=== PATIENT | male | born 1965 | race Caucasian/White ===

== ENCOUNTER 2019-04-15 21:44 | Inpatient (IN) | payer MEDICAID ==
[2019-04-15 23:08] LABS: ADD MAN DIFF? NO
[2019-04-15 23:13] LABS: BASOPHIL # 0.1 10^3/ul (0.0-0.1); BASOPHILS % 0.8 % (0.0-2.0); EOSINOPHILS # 0.2 10^3/ul (0.0-0.5); EOSINOPHILS % 1.5 % (0.0-7.0); HEMATOCRIT 39.4 % (42.0-52.0); HEMOGLOBIN 13.5 g/dl (14.0-18.0); LYMPHOCYTES # 2.2 10^3/ul (0.8-2.9); LYMPHOCYTES % 21.7 % (15.0-51.0); MEAN CORPUSCULAR HEMOGLOBIN 30.5 pg (29.0-33.0); MEAN CORPUSCULAR HGB CONC 34.3 g/dl (32.0-37.0); MEAN CORPUSCULAR VOLUME 89.1 fl (82.0-101.0); MEAN PLATELET VOLUME 8.7 fl (7.4-10.4); MONOCYTE # 0.7 10^3/ul (0.3-0.9); MONOCYTES % 7.1 % (0.0-11.0); NEUTROPHIL # 6.9 10^3/ul (1.6-7.5); NEUTROPHILS % 67.8 % (39.0-77.0); PLATELET COUNT 587 10^3/UL (140-415); RED BLOOD COUNT 4.42 10^6/ul (4.70-6.10); RED CELL DISTRIBUTION WIDTH 11.3 % (11.5-14.5)
[2019-04-15 23:13] LABS: WHITE BLOOD COUNT 10.1 10^3/ul (4.8-10.8)
[2019-04-15] MEDS: CEFEPIME 2GM/50 ML (PMX) 50 ML IVPB (23:16)
[2019-04-15] MEDS: ONDANSETRON 4 MG INJ IV (23:16)
[2019-04-15] MEDS: SODIUM CHLORIDE 0.9% 1L BAG IV* (23:16)
[2019-04-15] MEDS: HYDROmorphONE 1 MG/ML SYG IV (23:16)
[2019-04-15 23:33] LABS: INR 0.91; PROTIME 12.4 Sec (11.9-14.9)
[2019-04-15 23:34] LABS: PARTIAL THROMBOPLASTIN TIME 36.7 Sec (23.0-35.0)
[2019-04-15 23:40] LABS: ALANINE AMINOTRANSFERASE 21 IU/L (13-69); ALBUMIN 3.7 g/dl (3.3-4.9); ALKALINE PHOSPHATASE 185 IU/L (42-121); ANION GAP 9 (5-13); ASPARTATE AMINO TRANSFERASE 16 IU/L (15-46); BILIRUBIN,INDIRECT 0.4 mg/dl (0-1.1); BILIRUBIN,TOTAL 0.4 mg/dl (0.2-1.3); BLOOD UREA NITROGEN 10 mg/dl (7-20); C-REACTIVE PROTEIN 7.6 mg/dl (0.0-0.9); CALCIUM 9.4 mg/dl (8.4-10.2); CARBON DIOXIDE 28 mmol/L (21-31); CHLORIDE 96 mmol/L (97-110); CREATININE 0.56 mg/dl (0.61-1.24); Estimated GFR > 60 mL/min (>60); POTASSIUM 4.3 mmol/L (3.5-5.1); SODIUM 133 mmol/L (135-144); TOTAL PROTEIN 7.8 g/dl (6.1-8.1)
[2019-04-15 23:43] LABS: GLUCOSE 419 mg/dl (70-220)
[2019-04-15] MEDS: VANCOMYCIN 1 GM (PMX) 250 ML IVPB (23:52)
[2019-04-16 00:17] LABS: ERYTHROCYTE SEDIMENTATION RATE 107 mm/Hr (0-20)
[2019-04-16] MEDS ORDERED: ONDANSETRON 4 MG INJ IV ×2 (00:30)
[2019-04-16] MEDS ORDERED: NACL 0.9% 3 ML SYG IV (00:30)
[2019-04-16] MEDS ORDERED: BISACODYL (EC) 5 MG TAB PO (00:30)
[2019-04-16] MEDS ORDERED: ACETAMINOPHEN 325 MG TAB PO (00:30)
[2019-04-16] MEDS ORDERED: VANCOMYCIN IV PER PHARMACY XX (00:30)
[2019-04-16] MEDS: INSULIN LISPRO 100 UNIT/ML VIAL SC (01:20)
[2019-04-16 01:21] LABS: LACTIC ACID 1.3 mmol/L (0.5-2.0)
[2019-04-16] MEDS ORDERED: GLUCAGON 1 MG INJ IM (01:30)
[2019-04-16] MEDS ORDERED: GLUCOSE GEL 15 GRAM TUBE BUCCAL (01:30)
[2019-04-16] MEDS ORDERED: DEXTROSE 50% 50 ML SYRINGE IV ×2 (01:30)
[2019-04-16] MEDS ORDERED: GLUCOSE GEL 15 GRAM TUBE PO ×2 (01:30)
[2019-04-16] MEDS: morphine 2 MG INJ IV ×6 (01:44→22:54)
[2019-04-16] MEDS: DOCUSATE SODIUM 100 MG CAP PO ×2 (01:44→12:16)
[2019-04-16] MEDS: ACCU-CHEK XX ×2 (02:00→02:16)
[2019-04-16 03:25] LABS: ADD MAN DIFF? NO
[2019-04-16 03:28] LABS: WHITE BLOOD COUNT 9.3 10^3/ul (4.8-10.8)
[2019-04-16 03:28] LABS: BASOPHIL # 0.1 10^3/ul (0.0-0.1); BASOPHILS % 0.5 % (0.0-2.0); EOSINOPHILS # 0.2 10^3/ul (0.0-0.5); EOSINOPHILS % 1.8 % (0.0-7.0); HEMATOCRIT 34.8 % (42.0-52.0); LYMPHOCYTES # 2.6 10^3/ul (0.8-2.9); LYMPHOCYTES % 28.4 % (15.0-51.0); MEAN CORPUSCULAR HEMOGLOBIN 30.9 pg (29.0-33.0); MEAN CORPUSCULAR HGB CONC 34.5 g/dl (32.0-37.0); MEAN CORPUSCULAR VOLUME 89.7 fl (82.0-101.0); MEAN PLATELET VOLUME 8.5 fl (7.4-10.4); MONOCYTE # 0.7 10^3/ul (0.3-0.9); MONOCYTES % 7.9 % (0.0-11.0); NEUTROPHIL # 5.6 10^3/ul (1.6-7.5); NEUTROPHILS % 60.2 % (39.0-77.0); PLATELET COUNT 489 10^3/UL (140-415); RED BLOOD COUNT 3.88 10^6/ul (4.70-6.10); RED CELL DISTRIBUTION WIDTH 11.3 % (11.5-14.5)
[2019-04-16 03:46] LABS: LACTIC ACID 1.7 mmol/L (0.5-2.0)
[2019-04-16 03:47] LABS: ALANINE AMINOTRANSFERASE 22 IU/L (13-69); ALBUMIN 3.2 g/dl (3.3-4.9); ALBUMIN/GLOBULIN RATIO 0.86; ALKALINE PHOSPHATASE 136 IU/L (42-121); ANION GAP 7 (5-13); ASPARTATE AMINO TRANSFERASE 14 IU/L (15-46); BILIRUBIN,INDIRECT 0.4 mg/dl (0-1.1); BILIRUBIN,TOTAL 0.4 mg/dl (0.2-1.3); BLOOD UREA NITROGEN 11 mg/dl (7-20); CARBON DIOXIDE 29 mmol/L (21-31); CHLORIDE 102 mmol/L (97-110); CREATININE 0.51 mg/dl (0.61-1.24); Estimated GFR > 60 mL/min (>60); GLUCOSE 142 mg/dl (70-220); POTASSIUM 3.7 mmol/L (3.5-5.1); SODIUM 138 mmol/L (135-144); TOTAL PROTEIN 6.9 g/dl (6.1-8.1)
[2019-04-16] MEDS ORDERED: PENDING SANTYL ORDER FOR WOUND CARE XX (04:00)
[2019-04-16] MEDS: HYDROCODONE/APAP (5/325) TAB PO ×3 (04:43→17:27)
[2019-04-16] MEDS: INSULIN ASPART [NOVOLOG] 3 ML PEN SC ×4 (08:13→21:48)
[2019-04-16] MEDS: VANCOMYCIN 1 GM 250 ML IVPB ×2 (11:08→22:55)
[2019-04-16] MEDS: HEPARIN 5,000 UNIT/1 ML VIAL SC (21:49)
[2019-04-17] MEDS: HYDROCODONE/APAP (5/325) TAB PO ×3 (00:05→14:02)
[2019-04-17] MEDS: DOCUSATE SODIUM 100 MG CAP PO ×2 (00:36→12:37)
[2019-04-17] MEDS: ACCU-CHEK XX ×2 (02:54→05:49)
[2019-04-17] MEDS: INSULIN ASPART [NOVOLOG] 3 ML PEN SC ×6 (04:11→20:20)
[2019-04-17] MEDS: morphine 2 MG INJ IV ×3 (04:15→20:54)
[2019-04-17 05:47] LABS: ADD MAN DIFF? NO
[2019-04-17 06:07] LABS: BASOPHIL # 0.1 10^3/ul (0.0-0.1); BASOPHILS % 1.1 % (0.0-2.0); EOSINOPHILS # 0.2 10^3/ul (0.0-0.5); EOSINOPHILS % 2.8 % (0.0-7.0); HEMATOCRIT 35.8 % (42.0-52.0); HEMOGLOBIN 12.4 g/dl (14.0-18.0); LYMPHOCYTES # 2.8 10^3/ul (0.8-2.9); MEAN CORPUSCULAR HEMOGLOBIN 30.8 pg (29.0-33.0); MEAN CORPUSCULAR HGB CONC 34.6 g/dl (32.0-37.0); MEAN CORPUSCULAR VOLUME 89.1 fl (82.0-101.0); MEAN PLATELET VOLUME 8.7 fl (7.4-10.4); MONOCYTE # 0.5 10^3/ul (0.3-0.9); MONOCYTES % 6.4 % (0.0-11.0); NEUTROPHIL # 4.4 10^3/ul (1.6-7.5); NEUTROPHILS % 54.8 % (39.0-77.0); PLATELET COUNT 532 10^3/UL (140-415); RED BLOOD COUNT 4.02 10^6/ul (4.70-6.10); RED CELL DISTRIBUTION WIDTH 11.3 % (11.5-14.5)
[2019-04-17 06:07] LABS: WHITE BLOOD COUNT 8.1 10^3/ul (4.8-10.8)
[2019-04-17 06:26] LABS: ALANINE AMINOTRANSFERASE 15 IU/L (13-69); ALBUMIN 3.1 g/dl (3.3-4.9); ALBUMIN/GLOBULIN RATIO 0.83; ALKALINE PHOSPHATASE 133 IU/L (42-121); ANION GAP 8 (5-13); ASPARTATE AMINO TRANSFERASE 16 IU/L (15-46); BILIRUBIN,INDIRECT 0.3 mg/dl (0-1.1); BILIRUBIN,TOTAL 0.3 mg/dl (0.2-1.3); BLOOD UREA NITROGEN 15 mg/dl (7-20); CARBON DIOXIDE 28 mmol/L (21-31); CHLORIDE 101 mmol/L (97-110); CHOL/HDL RATIO 5.2 RATIO; CHOLESTEROL 136 mg/dl (100-200); CREATININE 0.54 mg/dl (0.61-1.24); Estimated GFR > 60 mL/min (>60); GLUCOSE 184 mg/dl (70-220); HDL CHOLESTEROL 26 mg/dl (28-71); LDL CHOLESTEROL,CALCULATED 92 mg/dl; MAGNESIUM 1.9 mg/dl (1.7-2.5); POTASSIUM 3.9 mmol/L (3.5-5.1); SODIUM 137 mmol/L (135-144); TOTAL PROTEIN 6.8 g/dl (6.1-8.1); TRIGLYCERIDES 90 mg/dl (0-149)
[2019-04-17 07:02] LABS: C-REACTIVE PROTEIN 3.8 mg/dl (0.0-0.9)
[2019-04-17] MEDS: HEPARIN 5,000 UNIT/1 ML VIAL SC ×2 (08:22→20:30)
[2019-04-17 08:26] LABS: ERYTHROCYTE SEDIMENTATION RATE 86 mm/Hr (0-20)
[2019-04-17] MEDS: VANCOMYCIN 1 GM 250 ML IVPB (10:53)
[2019-04-17 10:58] LABS: VANCOMYCIN,TROUGH < 5.0 ug/ml (10.0-20.0)
[2019-04-17] MEDS: VANCOMYCIN 750 MG (PMX) 250 ML IVPB (18:40)
[2019-04-17] MEDS: INSULIN GLARGINE [LANTus] (100 UNITS/ML) SYG SC (20:29)
[2019-04-18] MEDS: DOCUSATE SODIUM 100 MG CAP PO ×2 (00:51→12:29)
[2019-04-18] MEDS: morphine 2 MG INJ IV ×4 (01:12→20:45)
[2019-04-18] MEDS: ACCU-CHEK XX (02:00)
[2019-04-18] MEDS: HYDROCODONE/APAP (5/325) TAB PO ×3 (02:26→18:14)
[2019-04-18] MEDS: VANCOMYCIN 750 MG (PMX) 250 ML IVPB ×3 (02:38→19:10)
[2019-04-18 06:16] LABS: ADD MAN DIFF? NO
[2019-04-18 06:24] LABS: WHITE BLOOD COUNT 7.9 10^3/ul (4.8-10.8)
[2019-04-18 06:24] LABS: BASOPHIL # 0.1 10^3/ul (0.0-0.1); BASOPHILS % 0.8 % (0.0-2.0); EOSINOPHILS # 0.2 10^3/ul (0.0-0.5); EOSINOPHILS % 2.4 % (0.0-7.0); HEMATOCRIT 36.5 % (42.0-52.0); HEMOGLOBIN 12.3 g/dl (14.0-18.0); LYMPHOCYTES # 2.7 10^3/ul (0.8-2.9); LYMPHOCYTES % 34.3 % (15.0-51.0); MEAN CORPUSCULAR HEMOGLOBIN 30.5 pg (29.0-33.0); MEAN CORPUSCULAR HGB CONC 33.7 g/dl (32.0-37.0); MEAN CORPUSCULAR VOLUME 90.6 fl (82.0-101.0); MEAN PLATELET VOLUME 8.5 fl (7.4-10.4); MONOCYTE # 0.5 10^3/ul (0.3-0.9); MONOCYTES % 6.3 % (0.0-11.0); NEUTROPHIL # 4.4 10^3/ul (1.6-7.5); NEUTROPHILS % 55.2 % (39.0-77.0); PLATELET COUNT 557 10^3/UL (140-415); RED BLOOD COUNT 4.03 10^6/ul (4.70-6.10); RED CELL DISTRIBUTION WIDTH 11.5 % (11.5-14.5)
[2019-04-18 06:53] LABS: ALANINE AMINOTRANSFERASE 18 IU/L (13-69); ALBUMIN 3.4 g/dl (3.3-4.9); ALKALINE PHOSPHATASE 117 IU/L (42-121); ANION GAP 7 (5-13); ASPARTATE AMINO TRANSFERASE 16 IU/L (15-46); BILIRUBIN,INDIRECT 0.3 mg/dl (0-1.1); BILIRUBIN,TOTAL 0.3 mg/dl (0.2-1.3); BLOOD UREA NITROGEN 14 mg/dl (7-20); CALCIUM 8.9 mg/dl (8.4-10.2); CARBON DIOXIDE 28 mmol/L (21-31); CHLORIDE 103 mmol/L (97-110); CREATININE 0.54 mg/dl (0.61-1.24); Estimated GFR > 60 mL/min (>60); GLUCOSE 194 mg/dl (70-220); POTASSIUM 3.9 mmol/L (3.5-5.1); SODIUM 138 mmol/L (135-144); TOTAL PROTEIN 6.8 g/dl (6.1-8.1)
[2019-04-18] MEDS: INSULIN ASPART [NOVOLOG] 3 ML PEN SC ×7 (08:00→20:44)
[2019-04-18] MEDS: HEPARIN 5,000 UNIT/1 ML VIAL SC ×2 (08:25→20:44)
[2019-04-18 18:36] LABS: VANCOMYCIN,TROUGH 10.1 ug/ml (10.0-20.0)
[2019-04-18] MEDS: INSULIN GLARGINE [LANTus] (100 UNITS/ML) SYG SC (20:43)
[2019-04-19] MEDS: DOCUSATE SODIUM 100 MG CAP PO ×2 (00:30→12:31)
[2019-04-19] MEDS: ACCU-CHEK XX (01:01)
[2019-04-19] MEDS: morphine 2 MG INJ IV ×2 (01:47→09:49)
[2019-04-19] MEDS: VANCOMYCIN 1 GM 250 ML IVPB ×3 (03:14→18:16)
[2019-04-19 06:30] LABS: ADD MAN DIFF? NO
[2019-04-19 06:31] LABS: BASOPHIL # 0.1 10^3/ul (0.0-0.1); BASOPHILS % 0.8 % (0.0-2.0); EOSINOPHILS # 0.1 10^3/ul (0.0-0.5); EOSINOPHILS % 1.4 % (0.0-7.0); HEMATOCRIT 35.4 % (42.0-52.0); HEMOGLOBIN 11.7 g/dl (14.0-18.0); LYMPHOCYTES # 2.5 10^3/ul (0.8-2.9); LYMPHOCYTES % 27.1 % (15.0-51.0); MEAN CORPUSCULAR HEMOGLOBIN 30.7 pg (29.0-33.0); MEAN CORPUSCULAR HGB CONC 33.1 g/dl (32.0-37.0); MEAN CORPUSCULAR VOLUME 92.9 fl (82.0-101.0); MEAN PLATELET VOLUME 8.5 fl (7.4-10.4); MONOCYTE # 0.5 10^3/ul (0.3-0.9); MONOCYTES % 5.3 % (0.0-11.0); NEUTROPHILS % 64.9 % (39.0-77.0); PLATELET COUNT 511 10^3/UL (140-415); RED BLOOD COUNT 3.81 10^6/ul (4.70-6.10); RED CELL DISTRIBUTION WIDTH 11.7 % (11.5-14.5)
[2019-04-19 06:31] LABS: WHITE BLOOD COUNT 9.2 10^3/ul (4.8-10.8)
[2019-04-19 07:01] LABS: ALANINE AMINOTRANSFERASE 21 IU/L (13-69); ALBUMIN 3.1 g/dl (3.3-4.9); ALBUMIN/GLOBULIN RATIO 0.88; ALKALINE PHOSPHATASE 110 IU/L (42-121); ANION GAP 7 (5-13); ASPARTATE AMINO TRANSFERASE 24 IU/L (15-46); BILIRUBIN,INDIRECT 0.2 mg/dl (0-1.1); BILIRUBIN,TOTAL 0.2 mg/dl (0.2-1.3); BLOOD UREA NITROGEN 13 mg/dl (7-20); CALCIUM 8.8 mg/dl (8.4-10.2); CARBON DIOXIDE 27 mmol/L (21-31); CHLORIDE 105 mmol/L (97-110); CREATININE 0.52 mg/dl (0.61-1.24); Estimated GFR > 60 mL/min (>60); GLUCOSE 166 mg/dl (70-220); SODIUM 139 mmol/L (135-144); TOTAL PROTEIN 6.6 g/dl (6.1-8.1)
[2019-04-19] MEDS: INSULIN ASPART [NOVOLOG] 3 ML PEN SC ×7 (07:57→20:31)
[2019-04-19] MEDS: HEPARIN 5,000 UNIT/1 ML VIAL SC ×2 (08:00→20:30)
[2019-04-19] MEDS: HYDROCODONE/APAP (5/325) TAB PO (11:06)
[2019-04-19] MEDS: HYDROCODONE/APAP (7.5/325) TAB PO ×2 (14:30→19:26)
[2019-04-19] MEDS: INSULIN GLARGINE [LANTus] (100 UNITS/ML) SYG SC (20:29)
[2019-04-20] MEDS: DOCUSATE SODIUM 100 MG CAP PO ×3 (00:16→23:30)
[2019-04-20] MEDS: HYDROCODONE/APAP (7.5/325) TAB PO ×3 (00:26→14:46)
[2019-04-20] MEDS: ACCU-CHEK XX (01:55)
[2019-04-20 04:57] LABS: VANCOMYCIN,TROUGH 12.5 ug/ml (10.0-20.0)
[2019-04-20] MEDS: VANCOMYCIN 1 GM 250 ML IVPB ×3 (05:13→18:32)
[2019-04-20] MEDS: INSULIN ASPART [NOVOLOG] 3 ML PEN SC ×7 (07:35→21:08)
[2019-04-20] MEDS: HEPARIN 5,000 UNIT/1 ML VIAL SC ×2 (08:00→21:00)
[2019-04-20] MEDS: morphine 2 MG INJ IV (17:30)
[2019-04-20] MEDS: INSULIN GLARGINE [LANTus] (100 UNITS/ML) SYG SC (21:17)
[2019-04-21] MEDS: INSULIN ASPART [NOVOLOG] 3 ML PEN SC ×9 (02:22→17:10)
[2019-04-21] MEDS: ACCU-CHEK XX (02:23)
[2019-04-21] MEDS: VANCOMYCIN 1 GM 250 ML IVPB ×2 (02:23→10:38)
[2019-04-21] MEDS: morphine 2 MG INJ IV ×3 (05:50→18:06)
[2019-04-21] MEDS: DEXTROSE 5%-0.45% NACL 1,000 ML IV (05:51)
[2019-04-21 07:47] LABS: BLOOD UREA NITROGEN 10 mg/dl (7-20)
[2019-04-21 07:47] LABS: CREATININE 0.47 mg/dl (0.61-1.24)
[2019-04-21] MEDS: HEPARIN 5,000 UNIT/1 ML VIAL SC ×2 (09:00→20:40)
[2019-04-21] MEDS: DOCUSATE SODIUM 100 MG CAP PO (12:06)
[2019-04-21] MEDS ORDERED: HYDROmorphONE 1 MG/5 ML IV SYRINGE IV (14:00)
[2019-04-21] MEDS ORDERED: DIPHENHYDRAMINE 50 MG INJ IV (14:00)
[2019-04-21] MEDS ORDERED: PROCHLORPERAZINE 10 MG INJ IV (14:00)
[2019-04-21] MEDS ORDERED: PROPOFOL 20 ML (14:36)
[2019-04-21] MEDS ORDERED: LIDOCAINE 2% (SDV) 5 ML INJ (14:36)
[2019-04-21] MEDS ORDERED: MIDAZOLAM 1 MG/ML 2 ML INJ (14:36)
[2019-04-21] MEDS ORDERED: EPHEDrine 25 MG/5 ML SYG (14:54)
[2019-04-21] MEDS ORDERED: FENTAnyl 50 MCG/ML VIAL (14:55)
[2019-04-21] MEDS: POLYMYXIN B 500000 UNIT INJ (15:06)
[2019-04-21] MEDS: HYDROGEN PEROXIDE 118 ML (15:07)
[2019-04-21] MEDS: BACITRACIN 50000 UNITS INJ IRR (15:21)
[2019-04-21] MEDS ORDERED: HYDROCODONE/APAP (5/325) TAB PO (16:00)
[2019-04-21] MEDS ORDERED: NACL 0.9% 3 ML SYG IV (16:00)
[2019-04-21] MEDS: HYDROmorphONE 1 MG/5 ML IV SYRINGE IV ×2 (16:08→16:15)
[2019-04-21] MEDS: ONDANSETRON 4 MG INJ IV (16:20)
[2019-04-21] MEDS: MEPERIDINE 25 MG INJ IV (16:20)
[2019-04-21] MEDS: FENTAnyl 50 MCG/ML VIAL IV (16:29)
[2019-04-21] MEDS: D5W-0.45 NACL + KCL 20 MEQ 1,000 ML IV (17:11)
[2019-04-21] MEDS ORDERED: DOXYCYCLINE 100 MG TAB (19:56)
[2019-04-21] MEDS: HYDROCODONE/APAP (7.5/325) TAB PO (20:30)
[2019-04-21] MEDS: DOXYCYCLINE 100 MG TAB PO (20:31)
[2019-04-21] MEDS: Insulin NOVOLOG SS MILD Algorithm (SS with meals and bedtime) SC (20:31)
[2019-04-21] MEDS: INSULIN GLARGINE [LANTus] (100 UNITS/ML) SYG SC (20:32)
[2019-04-21] MEDS ORDERED: INSULIN ASPART [NOVOLOG] 3 ML PEN SC (21:00)
[2019-04-22] MEDS: DOCUSATE SODIUM 100 MG CAP PO ×3 (00:46→23:58)
[2019-04-22] MEDS: morphine 2 MG INJ IV ×2 (00:46→07:15)
[2019-04-22] MEDS: D5W-0.45 NACL + KCL 20 MEQ 1,000 ML IV ×2 (01:37→04:34)
[2019-04-22] MEDS: HYDROCODONE/APAP (7.5/325) TAB PO ×4 (01:44→17:23)
[2019-04-22] MEDS: ACCU-CHEK XX (02:00)
[2019-04-22] MEDS: INSULIN ASPART [NOVOLOG] 3 ML PEN SC ×4 (03:10→17:17)
[2019-04-22 06:33] LABS: ADD MAN DIFF? NO
[2019-04-22 06:36] LABS: BASOPHIL # 0.1 10^3/ul (0.0-0.1); EOSINOPHILS # 0.1 10^3/ul (0.0-0.5); HEMATOCRIT 31.1 % (42.0-52.0); HEMOGLOBIN 10.5 g/dl (14.0-18.0); LYMPHOCYTES % 29.4 % (15.0-51.0); MEAN CORPUSCULAR HGB CONC 33.8 g/dl (32.0-37.0); MEAN CORPUSCULAR VOLUME 91.7 fl (82.0-101.0); MEAN PLATELET VOLUME 9.1 fl (7.4-10.4); MONOCYTE # 0.6 10^3/ul (0.3-0.9); MONOCYTES % 8.5 % (0.0-11.0); NEUTROPHILS % 59.5 % (39.0-77.0); PLATELET COUNT 471 10^3/UL (140-415); RED BLOOD COUNT 3.39 10^6/ul (4.70-6.10); RED CELL DISTRIBUTION WIDTH 11.6 % (11.5-14.5)
[2019-04-22 06:36] LABS: WHITE BLOOD COUNT 6.7 10^3/ul (4.8-10.8)
[2019-04-22 07:32] LABS: ANION GAP 7 (5-13); BLOOD UREA NITROGEN 7 mg/dl (7-20); CALCIUM 8.7 mg/dl (8.4-10.2); CARBON DIOXIDE 25 mmol/L (21-31); CHLORIDE 106 mmol/L (97-110); CREATININE 0.49 mg/dl (0.61-1.24); Estimated GFR > 60 mL/min (>60); GLUCOSE 179 mg/dl (70-220); POTASSIUM 3.7 mmol/L (3.5-5.1); SODIUM 138 mmol/L (135-144)
[2019-04-22 07:42] LABS: MAGNESIUM 1.7 mg/dl (1.7-2.5)
[2019-04-22 07:42] LABS: PHOSPHORUS 4.3 mg/dl (2.5-4.9)
[2019-04-22] MEDS: Insulin NOVOLOG SS MILD Algorithm (SS with meals and bedtime) SC ×4 (08:04→20:37)
[2019-04-22] MEDS: ENOXAPARIN 40 MG/0.4 ML SYG SC (09:00)
[2019-04-22] MEDS: DOXYCYCLINE 100 MG TAB PO ×2 (09:20→20:36)
[2019-04-22] MEDS: HEPARIN 5,000 UNIT/1 ML VIAL SC (09:21)
[2019-04-22 10:39] LABS: ADD MAN DIFF? NO
[2019-04-22 10:40] LABS: BASOPHIL # 0.1 10^3/ul (0.0-0.1); BASOPHILS % 0.9 % (0.0-2.0); EOSINOPHILS # 0.1 10^3/ul (0.0-0.5); EOSINOPHILS % 1.1 % (0.0-7.0); HEMATOCRIT 33.2 % (42.0-52.0); HEMOGLOBIN 11.2 g/dl (14.0-18.0); LYMPHOCYTES % 25.2 % (15.0-51.0); MEAN CORPUSCULAR HEMOGLOBIN 30.9 pg (29.0-33.0); MEAN CORPUSCULAR HGB CONC 33.7 g/dl (32.0-37.0); MEAN CORPUSCULAR VOLUME 91.5 fl (82.0-101.0); MEAN PLATELET VOLUME 8.7 fl (7.4-10.4); MONOCYTE # 0.6 10^3/ul (0.3-0.9); NEUTROPHIL # 5.2 10^3/ul (1.6-7.5); NEUTROPHILS % 64.1 % (39.0-77.0); PLATELET COUNT 531 10^3/UL (140-415); RED BLOOD COUNT 3.63 10^6/ul (4.70-6.10); RED CELL DISTRIBUTION WIDTH 11.6 % (11.5-14.5)
[2019-04-22 10:40] LABS: WHITE BLOOD COUNT 8.1 10^3/ul (4.8-10.8)
[2019-04-22] MEDS: morphine 4 MG/ML VIAL IV ×3 (11:09→20:36)
[2019-04-22 11:55] LABS: VANCOMYCIN,TROUGH < 5.0 ug/ml (10.0-20.0)
[2019-04-22] MEDS: INSULIN GLARGINE [LANTus] (100 UNITS/ML) SYG SC (20:37)
[2019-04-23] MEDS: morphine 4 MG/ML VIAL IV (00:01)
[2019-04-23] MEDS: HYDROCODONE/APAP (7.5/325) TAB PO ×4 (01:51→22:50)
[2019-04-23] MEDS: ACCU-CHEK XX ×2 (01:51→20:36)
[2019-04-23] MEDS: morphine 2 MG INJ IV ×4 (05:46→20:39)
[2019-04-23 07:22] LABS: ADD MAN DIFF? NO
[2019-04-23 07:27] LABS: WHITE BLOOD COUNT 7.7 10^3/ul (4.8-10.8)
[2019-04-23 07:27] LABS: BASOPHIL # 0.1 10^3/ul (0.0-0.1); BASOPHILS % 0.9 % (0.0-2.0); EOSINOPHILS # 0.1 10^3/ul (0.0-0.5); EOSINOPHILS % 1.7 % (0.0-7.0); HEMATOCRIT 31.4 % (42.0-52.0); HEMOGLOBIN 10.6 g/dl (14.0-18.0); LYMPHOCYTES # 2.3 10^3/ul (0.8-2.9); LYMPHOCYTES % 29.8 % (15.0-51.0); MEAN CORPUSCULAR HEMOGLOBIN 31.3 pg (29.0-33.0); MEAN CORPUSCULAR HGB CONC 33.8 g/dl (32.0-37.0); MEAN CORPUSCULAR VOLUME 92.6 fl (82.0-101.0); MEAN PLATELET VOLUME 8.8 fl (7.4-10.4); MONOCYTE # 0.6 10^3/ul (0.3-0.9); MONOCYTES % 8.3 % (0.0-11.0); NEUTROPHIL # 4.5 10^3/ul (1.6-7.5); NEUTROPHILS % 58.7 % (39.0-77.0); PLATELET COUNT 548 10^3/UL (140-415); RED BLOOD COUNT 3.39 10^6/ul (4.70-6.10); RED CELL DISTRIBUTION WIDTH 11.9 % (11.5-14.5)
[2019-04-23 07:56] LABS: ANION GAP 6 (5-13); BLOOD UREA NITROGEN 11 mg/dl (7-20); CALCIUM 9.2 mg/dl (8.4-10.2); CARBON DIOXIDE 30 mmol/L (21-31); CHLORIDE 100 mmol/L (97-110); CREATININE 0.58 mg/dl (0.61-1.24); Estimated GFR > 60 mL/min (>60); GLUCOSE 213 mg/dl (70-220); POTASSIUM 4.1 mmol/L (3.5-5.1); SODIUM 136 mmol/L (135-144)
[2019-04-23] MEDS: Insulin NOVOLOG SS MILD Algorithm (SS with meals and bedtime) SC ×4 (08:02→20:36)
[2019-04-23] MEDS: INSULIN ASPART [NOVOLOG] 3 ML PEN SC ×3 (08:03→17:27)
[2019-04-23] MEDS: ENOXAPARIN 40 MG/0.4 ML SYG SC (08:03)
[2019-04-23] MEDS: DOXYCYCLINE 100 MG TAB PO ×2 (08:04→20:36)
[2019-04-23] MEDS ORDERED: TETANUS IMMUNE GLOB 250 UNIT SYG IM (10:30)
[2019-04-23] MEDS: ACETAMINOPHEN 325 MG TAB PO (16:21)
[2019-04-23] MEDS: INSULIN GLARGINE [LANTus] (100 UNITS/ML) SYG SC (20:35)
[2019-04-24] MEDS: morphine 2 MG INJ IV ×2 (02:21→08:18)
[2019-04-24] MEDS: ACCU-CHEK XX ×4 (02:22→17:15)
[2019-04-24] MEDS: ACETAMINOPHEN 325 MG TAB PO (04:53)
[2019-04-24] MEDS: ENOXAPARIN 40 MG/0.4 ML SYG SC (08:15)
[2019-04-24] MEDS: EMPAGLIFLOZIN 10 MG TABLET PO (08:15)
[2019-04-24] MEDS: DOXYCYCLINE 100 MG TAB PO (08:15)
[2019-04-24] MEDS: INSULIN ASPART [NOVOLOG] 3 ML PEN SC ×3 (08:16→17:17)
[2019-04-24] MEDS: Insulin NOVOLOG SS MILD Algorithm (SS with meals and bedtime) SC ×3 (08:17→17:14)
[2019-04-24] MEDS: HYDROCODONE/APAP (7.5/325) TAB PO ×2 (12:01→16:08)
== END 2019-04-24 21:00 | disposition home health service (06) | DRG 501 ==
LOC: PP2 04-16 00:06 → FTE 21:44
PROC: 0MBP0ZZ Excision of Left Knee Bursa and Ligament, Open Approach (ICD-10-PCS; principal; 2019-04-21 14:30)
DX: M70.42 Prepatellar bursitis, left knee (principal); L03.116 Cellulitis of left lower limb; E11.65 Type 2 diabetes mellitus with hyperglycemia; E88.81 Metabolic syndrome and other insulin resistance; D64.9 Anemia, unspecified; E55.9 Vitamin D deficiency, unspecified
CPT/HCPCS: 36415; 73562; 73721; 80048; 80053; 80061; 80202; 82306; 82565; 82962; 83036; 83605; 83735; 84100; 84520; 85025; 85610; 85651; 85730; 86140; 87040-91; 87070; 87075; 87102; 93005; 96374; 96375; 99285-25

== ENCOUNTER 2019-04-26 07:44 | Emergency (ER) | payer MEDICAID ==
[2019-04-26 08:59] LABS: ADD MAN DIFF? NO
[2019-04-26 09:02] LABS: BASOPHIL # 0.1 10^3/ul (0.0-0.1); BASOPHILS % 1.4 % (0.0-2.0); EOSINOPHILS # 0.1 10^3/ul (0.0-0.5); EOSINOPHILS % 0.9 % (0.0-7.0); HEMATOCRIT 37.6 % (42.0-52.0); HEMOGLOBIN 12.5 g/dl (14.0-18.0); LYMPHOCYTES # 2.1 10^3/ul (0.8-2.9); LYMPHOCYTES % 33.1 % (15.0-51.0); MEAN CORPUSCULAR HEMOGLOBIN 30.7 pg (29.0-33.0); MEAN CORPUSCULAR HGB CONC 33.2 g/dl (32.0-37.0); MEAN CORPUSCULAR VOLUME 92.4 fl (82.0-101.0); MONOCYTE # 0.4 10^3/ul (0.3-0.9); MONOCYTES % 6.5 % (0.0-11.0); NEUTROPHIL # 3.6 10^3/ul (1.6-7.5); NEUTROPHILS % 57.3 % (39.0-77.0); PLATELET COUNT 565 10^3/UL (140-415); RED BLOOD COUNT 4.07 10^6/ul (4.70-6.10); RED CELL DISTRIBUTION WIDTH 11.9 % (11.5-14.5)
[2019-04-26 09:02] LABS: WHITE BLOOD COUNT 6.3 10^3/ul (4.8-10.8)
[2019-04-26 09:24] LABS: ANION GAP 8 (5-13); BLOOD UREA NITROGEN 13 mg/dl (7-20); CALCIUM 9.5 mg/dl (8.4-10.2); CARBON DIOXIDE 26 mmol/L (21-31); CHLORIDE 102 mmol/L (97-110); CREATININE 0.59 mg/dl (0.61-1.24); Estimated GFR > 60 mL/min (>60); GLUCOSE 272 mg/dl (70-220); POTASSIUM 4.5 mmol/L (3.5-5.1); SODIUM 136 mmol/L (135-144)
[2019-04-26 09:43] LABS: C-REACTIVE PROTEIN 0.6 mg/dl (0.0-0.9)
[2019-04-26] MEDS ORDERED: KETOROLAC 15 MG INJ IV (10:07)
[2019-04-26 10:29] LABS: ERYTHROCYTE SEDIMENTATION RATE 49 mm/Hr (0-20)
[2019-04-26] MEDS ORDERED: SOD CHLORIDE 0.9% 1,000 ML IV (10:30)
[2019-04-26] MEDS: KETOROLAC 15 MG INJ IM (10:40)
== END 2019-04-26 10:59 | disposition home or self-care (01) ==
LOC: E/R 07:44
DX: G89.18 Other acute postprocedural pain (principal); M25.562 Pain in left knee; D64.9 Anemia, unspecified; D47.3 Essential (hemorrhagic) thrombocythemia; R73.9 Hyperglycemia, unspecified; Z87.39 Personal history of other diseases of the musculoskeletal system and connective tissue; Z48.817 Encounter for surgical aftercare following surgery on the skin and subcutaneous tissue; Z48.01 Encounter for change or removal of surgical wound dressing
CPT/HCPCS: 73562; 80048; 85025; 85651; 86140; 96372; 99284-25